=== PATIENT | male | born 1975 | race Caucasian/White ===

== ENCOUNTER → 2024-08-22 | Outpatient (CLI) | payer BC, SELFPAY ==
--- NOTE | 2024-08-22 15:00 | XR_ITS ---
Examination: Abdomen sonogram, Limited Date and time of exam: August 22, 2024 1500 hours INDICATIONS: Right upper abdominal pain years, worse the last 8 months Technique: Real-time holcomb scale transabdominal sonographic images of the upper abdomen obtained. Findings: Gallbladder sludge No gallstones Gallbladder wall 0.2 cm Common bile duct 0.3 cm Pancreatic head 2.3 cm Liver 13.9 cm Normal hepatopedal portal venous flow Patent IVC IMPRESSION: Gallbladder sludge, consider HIDA scan follow-up with ejection fraction
== END | disposition home or self-care (01) ==
PROVIDERS: PCP Family Medicine; Referring Provider Specialist; Visit Provider Specialist
DX: R10.9 Unspecified abdominal pain (principal)
CPT/HCPCS: 76705

== ENCOUNTER 2024-09-18 11:29 | Outpatient (RCR) | payer BC, SELFPAY ==
--- NOTE | 2024-09-18 12:30 | XR_ITS ---
Examination: Nuclear medicine hepatobiliary scan, static HIDA scan Date of exam: September 18, 2024 1151 hours INDICATIONS: Right upper quadrant abdominal pain and distention nausea 3 years Technique And Findings: 5.8 mCi 99m Hepatolite administered intravenously. Serial imaging obtained immediately through 60 minutes. Homogenous uptake in the liver. Common bile duct small bowel activity noted no gallbladder activity Impression: Abnormal study, cystic duct obstruction
== END 2024-09-23 23:59 | disposition home or self-care (01) ==
LOC: SNUC 11:29
PROVIDERS: PCP Family Medicine; Referring Provider Specialist; Visit Provider Specialist
DX: R93.89 Abnormal findings on diagnostic imaging of other specified body structures (principal)
CPT/HCPCS: 78227; A9537

== ENCOUNTER 2024-10-05 07:50 | Day surgery (SDC) | payer BC, SELFPAY ==
[2024-10-04 14:48] VITALS: BMI 24.6
[2024-10-05] VITALS (8 sets, daily range): BP systolic 110–134; BP diastolic 70–95; PULSE 50–84; RESP 11–18; TEMP 36.1–36.7; O2SAT 96–100; BMI 23.5
[2024-10-05] MEDS: SODIUM CHLORIDE 0.9% 500 ML 500 ML 20 ML IV (08:23)
[2024-10-05] MEDS: DiphenhydrAMINE INJ 50 MG/ML VIAL 25 MG IV (10:03)
[2024-10-05] MEDS: MIDAZOLAM INJ 1 MG/ML VIAL 2 ML (ASD USE ONLY) 2 MG IV (10:05)
[2024-10-05] MEDS: fentaNYL CIT INJ 50 mCg/ML AMP 2ML (ASD USE ONLY) IV (10:05)
--- NOTE | 2024-10-05 11:30 | SUR.PHASEII ---
1045 Pt remains drowsy, yet approp. Denies pain or N/V-then drifts back to sleep. Conchita-significant other, given pt update.
--- NOTE | 2024-10-05 12:09 | SUR.PHASEII ---
1105 Pt more awake and alert. Denies pain or N/V. Abd remains soft. Pt anthony po fluids. Confirmed at [facility] that new prescriptions are ready for berry picker. 1115 Pt assessment unchanged. No complaints. DC instructions given to pt and Conchita-aware of 2 new prescriptions to be picked up at [facility]. Both state understanding. Pt meets dc criteria-to home.
== END 2024-10-05 11:15 | disposition home or self-care (01) ==
PROVIDERS: PCP Family Medicine; Referring Provider Specialist; Visit Provider Specialist
PROC: (CPT 43239; principal; 2024-10-05 10:15)
DX: K20.90 Esophagitis, unspecified without bleeding (principal); K29.70 Gastritis, unspecified, without bleeding; K26.4 Chronic or unspecified duodenal ulcer with hemorrhage
CPT/HCPCS: 43239; A4649; J1200; J2250; J3010; J7040

== ENCOUNTER 2024-11-08 08:40 | Day surgery (SDC) | payer BC, SELFPAY ==
--- NOTE | 2024-11-07 06:34 | EKG_ITS ---
[facility] Test Date: 2024-11-07 Pat Name: MILAGRO GOOD Department: Room: - Gender: Male Customer Solutions Coordinator: CARLOS : 1975 Requested By: Kyara Nelson Order Number: [id number] Reading MD: Kyara Nelson Measurements Intervals [place] Rate: 42 P: 61 SD: 203 QRS: 43 QRSD: 94 T: 47 QT: 427 QTc: 360 Interpretive Statements SINUS BRADYCARDIA WITH SINUS ARRHYTHMIA EARLY REPOLARIZATION [ST ELEVATION WITH NORMALLY INFLECTED T WAVE] MODERATE ST DEPRESSION [0.05+ mV ST DEPRESSION] No previous ECG available for comparison /[id number]/[email or web address]/[id number].pdf
[2024-11-07 07:59] VITALS: BMI 22.0
[2024-11-07 09:00] LABS: Basophils % (Auto) 0 % (0-2.5); Eosinophils # (Auto) 0.1 Thou/mm3 (0.0-0.5); Eosinophils % (Auto) 2 % (0-10); Hematocrit 42.4 % (41.0-53.0); Hemoglobin 14.9 g/dL (13.5-16.0); Immature Granulocytes % (Auto) 0 % (0-0); Immature Granulocytes Auto 0.01 Thou/mm3 (0.00-0.00); Lymphocytes % (Auto) 36 % (10-50); Mean Corpuscular HGB Conc 35.1 g/dl (31.0-37.0); Mean Corpuscular Hemoglobin 30.3 pg (25.0-35.0); Mean Corpuscular Volume 86 fL (80-100); Monocytes # (Auto) 0.4 Thou/mm3 (0.0-0.8); Monocytes % (Auto) 8 % (0-12); Neutrophils # (Auto) 2.9 Thou/mm3 (1.8-7.7); Neutrophils % (Auto) 54 % (37-80); Nucleated Red Blood Cell % 0 /100 WBC (0); Platelet Count 235 Thou/mm3 (140-440); RDW Standard Deviation 37.9 fL (35.1-43.9); Red Blood Count 4.91 Miln/mm3 (4.50-5.90); White Blood Count 5.4 Thou/mm3 (3.8-10.6)
[2024-11-07 09:16] LABS: Alanine Aminotransferase 10 U/L (10-49); Albumin, Serum 4.3 gm/dL (3.5-5.0); Alkaline Phosphatase 59 U/L (46-116); Anion Gap 6 (7-16); BUN/Creatinine Ratio 12 Ratio (12-20); Bilirubin,Total 0.4 mg/dL (0.3-1.2); Blood Urea Nitrogen 13 mg/dL (9-23); Calcium 9.4 mg/dL (8.3-10.6); Calcium (Corrected) 9.4 mg/dL (8.5-10.1); Carbon Dioxide 29.7 mMol/L (20.0-31.0); Chloride 108 mMol/L (98-107); Creatinine (Component) 1.1 mg/dL (0.6-1.3); Globulin 2.1 gm/dL (2.3-3.5); Glucose 109 mg/dL (74-106); Osmolality,Calculated 287 (275-295); Potassium 4.7 mMol/L (3.4-5.1); Sodium 144 mMol/L (136-145); Total Protein 6.4 gm/dL (5.7-8.2); eGFR > 60 See Note
--- NOTE | 2024-11-07 15:28 | SUR.PREOP ---
Message left for pt to come in at 0900 tomorrow.
[2024-11-08] VITALS (7 sets, daily range): BP systolic 129–160; BP diastolic 77–103; PULSE 46–68; RESP 13–20; TEMP 36.2–36.4; O2SAT 94–99; BMI 21.7
--- NOTE | 2024-11-08 11:24 | ESOP_ITS ---
Date of Procedure 11/08/24 Pre Op Diagnosis Symptomatic cholelithiasis Post Op Diagnosis Cholelithiasis with cholecystitis Procedure Laparoscopic cholecystectomy Findings Mildly distended gallbladder with small gallstones and chronic cholecystitis Procedure Description Patient was brought into the operating room in supine position. After a dministration of general endotracheal anesthesia abdomen was prepped and draped in standard surgical manner. A Veress needle was inserted through the umbilicus and pneumoperitoneum was obtained up to 15 mmHg. The Veress needle was then removed, a 5 mm infraumbilical incision was made and the 5mm trocar was inserted. Laparoscopic camera was placed. Under direct visualization a laparoscopic camera a 10 mm trocar was placed in subxiphoid and two 5 mm trocars placed in right upper quadrant. The gallbladder was identified and was noted to be mildly distended with small gallstones and chronic cholecystitis. It was retracted cephalad and laterally. Dissection started near the infundibulum of gallbladder where cystic duct and gallbladder junction clearly identified. The cystic duct was circumferentially dissected off the peritoneum and surrounding inflammatory tissue. The critical view of safety was clearly demonstrated. Cystic duct was then divided between 2 endoclips proximally and one distally. The cystic artery was similarly dissected and divided. The gallbladder was then from the liver bed using electrocautery. The gallbladder was then placed inside an Endo Catch and removed from the abdomen utilizing subxiphoid trocar site. The area was copiously and thoroughly washed and irrigated, all the fluid was suctioned and the suction fluid returned clear. Hemostasis achieved using electrocautery. Endoclips noted be in place and intact without any bleeding or any leakage. Hemostasis was adequate and satisfactory. The subxiphoid trocar sites fascial defect was closed with 0 Vicryl using Endo Closure device. Instruments and trocars removed, pneumoperitoneum was evacuated and the incisions closed with 4-0 Monocryl in subcuticular fashion. Instrument needle and sponge counts were all reported to be correct X2. Patient tolerated the procedure well, was extubated, breathing spontaneously and without difficulty and was transferred to postanesthesia care in stable condition. Anesthesia GETA and local Pathology / specimen Other (Gallbladder and contents) Estimated Blood Loss 10 Condition Stable Disposition PACU Surgeon Kyara Nelson MD Surgical Staff Operation Date: 11/08/24 11:00 Case Staff Anesthesiologist: Barry Willis RN First Assistant: Gilmar Borden
--- NOTE | 2024-11-08 11:27 | SUR.PHASEI ---
1127: received pt from OR via yazan. received report from JIMMY Lawrence and Dr. Willis. oral airway in place. no s/s pain or discomfort. no s/s of resp. distress or discomfort. dermabond x4 to adbomen clean, dry and intact. no bleeding or swelling noted.
--- NOTE | 2024-11-08 11:43 | SUR.PHASEI ---
1143: pt able to open mouth, removed oral airway at this time. tolerated well.
--- NOTE | 2024-11-08 11:47 | SUR.PHASEI ---
1147: pt awakened for verbal stimuli but drifts back to sleep. no s/s of resp. distress or discomfort. no s/s of pain or discomfort.
[2024-11-08] MEDS: fentaNYL CIT INJ 50 mCg/ML AMP 2ML 25 MCG IVP (11:54)
--- NOTE | 2024-11-08 12:02 | SUR.PHASEII ---
1202: pt able to drink water with ice without any difficulty.
--- NOTE | 2024-11-08 12:28 | SUR.PHASEII ---
1228: pt discharge to home via wheelchair. pt alert and oriented to name, palce and time. denies any pain or discomfort. no s/s of rsep. distress or discomfort. derma ross x4 clean, dry and intact. no bleeding or swelling noted. discharge instructions given to patient and Conchita, girlfriend, verbalizes understanding. all belonging brought given back to patient.
== END 2024-11-08 12:28 | disposition home or self-care (01) ==
PROVIDERS: PCP Family Medicine; Referring Provider Surgery; Visit Provider Surgery
PROC: 0FT44ZZ Resection of Gallbladder, Percutaneous Endoscopic Approach (ICD-10-PCS; CPT 47562; principal; 2024-11-08 11:00)
DX: K80.10 Calculus of gallbladder with chronic cholecystitis without obstruction (principal); Z01.810 Encounter for preprocedural cardiovascular examination
CPT/HCPCS: 47562; 36415; 80053; 85025; 93005; A4217; A4649; J0131; J0461; J0694; J2250; J2405; J2704; J2765; J3010; J3490